=== PATIENT | female | born 1995 | race Two or more races ===

== ENCOUNTER 2016-09-13 02:59 | Emergency (ER) | payer OTHER ==
[2016-09-13 03:34] LABS: APPEARANCE,URINE CLOUDY; BILIRUBIN,URINE NEGATIVE (NEGATIVE); GLUCOSE, URINE NEGATIVE (NEGATIVE); KETONES,URINE NEGATIVE (NEGATIVE); LEUKOCYTE ESTERASE,URINE MODERATE (NEGATIVE); NITRITE,URINE NEGATIVE (NEGATIVE); PROTEIN,URINE 100 mg/dL (NEGATIVE); UROBILINOGEN,URINE NEGATIVE mg/dL (<2.0)
[2016-09-13] MEDS ORDERED: PHENAZOPYRIDINE HCL 200 MG TABLET PO ONE (04:04)
[2016-09-13] MEDS ORDERED: CEPHALEXIN 500 MG CAPSULE PO ONE (04:04)
--- NOTE | 2016-09-13 04:07 | ER Document Report ---
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 Flank pain, nausea or vomiting, fever or chills. She denies history of kidney stones. She denies any daily medications or medical problems. - CONSTITUTIONAL Constitutional: DENIES: Fever, Chills - EENT EENT: DENIES: Sore Throat, Ear Pain, Nasal Drainage-Clear, Nasal Drainage- Purulent, Congestion, Eye problems - NEURO Neurology: DENIES: Headache, Weakness, Vision blurred, Dizzinesss / Vertigo - CARDIOVASCULAR Cardiovascular: DENIES: Chest pain - RESPIRATORY Respiratory: DENIES: Trouble Breathing, Coughing - GASTROINTESTINAL Gastrointestinal: DENIES: Abdominal Pain, Nausea, Patient vomiting, Diarrhea, Constipation, Black / Bloody Stools - URINARY Urinary: REPORTS: Dysuria, Urgency, Frequency - REPRODUCTIVE Reproductive: DENIES: :, Postmenopausal, Abnormal bleeding / discharge - MUSCULOSKELETAL Musculoskeletal: DENIES: Extremity pain, Back Pain, Neck Pain, Swelling - DERM Skin Color: Normal, [place] Skin Problems: None - NURSING COMMENTS Comment: Pt ambulated to ED with c/o UTI like symptoms. Pt states she had a UTI in the past and this feels the same. AAOx4. Breathing even and unlabored. NAD. Past Medical History - General Information source: Patient Last Menstrual Period: N/A - Social History Smoking Status: Never Smoker Cigarette use (# per day): No Chew tobacco use (# tins/day): No Frequency of alcohol use: None Drug Abuse: None Lives with: Alone Family History: Reviewed & Not Pertinent Patient has suicidal ideation: No Patient has homicidal ideation: No - Medical History Medical History: Negative Renal/ Medical History: Denies: Hx Peritoneal Dialysis Surgical Hx: Negative - Immunizations Immunizations up to date: Yes Hx Diphtheria, Pertussis, Tetanus Vaccination: Yes Vertical Provider Document - CONSTITUTIONAL General Appearance: WD/WN, No Apparent Distress - INFECTION CONTROL TRAVEL OUTSIDE OF THE [place] IN LAST 30 DAYS: No - HEENT HEENT: Atraumatic, Normocephalic - NECK Neck: Normal Inspection - RESPIRATORY Respiratory: Breath Sounds Normal, No Respiratory Distress O2 Sat by Pulse Oximetry: 98 - CARDIOVASCULAR Cardiovascular: Regular Rate, Regular Rhythm - GI/ABDOMEN Gastrointestinal: Abdomen Soft. negative: Abdomen Non-Tender - Mild suprapubic tenderness - BACK Back: Normal Inspection. negative: CVA Tenderness-Right, CVA Tenderness-Left - MUSCULOSKELETAL/EXTREMETIES Musculoskeletal/Extremeties: MAEW, FROM, Non-Tender - NEURO Level of Consciousness: Awake, Alert, Appropriate Motor/Sensory: No Motor Deficit, No Sensory Deficit Course - Re-evaluation Re-evalutation: Obvious infection by urinalysis, culture place, hCG negative. Suprapubic tenderness on exam with no CVA tenderness, no vomiting or fever, no history of kidney stones. Treating with Keflex. - Vital Signs Vital signs: Temp Pulse Resp BP Pulse Ox 98.8 F 83 16 92/73 L 98 09/13/16 03:03 09/13/16 03:03 09/13/16 03:03 09/13/16 03:03 09/13/16 03:03 - Laboratory Laboratory results interpreted by me: 09/13/16 03:15 Urine Protein 100 H Urine Blood LARGE H Ur Leukocyte Esterase MODERATE H Discharge - Discharge Clinical Impression: Dysuria Urinary tract infection Qualifiers: Urinary tract infection type: site unspecified Hematuria presence: with hematuria Qualified Code(s): N39.0 - Urinary tract infection, site not specified Condition: Stable Disposition: HOME, SELF-CARE Additional Instructions: Your symptoms, exam, and workup were consistent with a urinary tract infection. Take Keflex antibiotic as instructed, take Pyridium for symptoms as directed. Your test is negative. We have a urine culture growing in our lab. Follow-up with primary care. Return to the emergency department for any concerning worsening symptoms including vomiting, flank pain, fever, etc. Prescriptions: Cephalexin Monohydrate [Keflex 500 mg Capsule] 500 mg PO BID #14 capsule Phenazopyridine HCl [Pyridium 200 mg Tablet] 200 mg PO TID #9 tablet
[2016-09-13 04:17] VITALS: BP 100/74
== END 2016-09-13 04:19 | disposition home or self-care (01) ==
LOC: ER 02:59
DX: N39.0 Urinary tract infection, site not specified (principal)
CPT/HCPCS: 99284; 87086; 81025; 87088; 81001; 87186; J3490